=== PATIENT | male | born 1955 | race Caucasian/White ===

== ENCOUNTER 2023-10-31 13:23 | Emergency (ER) | payer OTHER, MEDICARE ==
[~2023-10-31] VITALS: Ht 182.9 cm; Wt 110.2 kg
[2023-10-31 13:43] LABS: RDW 13.9 (10.5-15.0)
[2023-10-31] MEDS ORDERED: LACTATED RINGER'S 1,000 ML IV ONE (13:45)
[2023-10-31 13:46] LABS: BASOPHILS 0.9 % (0-2); EOSINOPHILS 0.1 % (0-6); HEMATOCRIT 42.8 % (35.0-50.0); HEMOGLOBIN 14.4 g/dL (12.0-18.0); LYMPHOCYTES 24.8 % (24-44); MCH 29.6 (27-36); MCHC 33.6 g/dl (30-36); MONOCYTES 5.1 % (0-12); NEUTROPHILS 69.1 % (39-80); PLATELET COUNT 263 K/uL (140-440); RBC 4.87 M/ul (4.3-5.7)
[2023-10-31 13:54] LABS: ALBUMIN 3.9 g/dL (3.4-5.0); ALBUMIN/GLOBULIN RATIO 1.15 (1.1-2.4); ALCOHOL, MEDICAL <3 ng/dL (<3); ALKALINE PHOSPHATASE 78 U/L (46-116); ALT (SGPT) 39 U/L (14-59); ANION GAP 15.6 (7-21); AST (SGOT) 23 U/L (15-37); BILIRUBIN, TOTAL 0.6 ng/dL (0.2-1.0); BUN/CREATININE RATIO 22.66 (6.0-28.6); CARBON DIOXIDE 23 mmol/L (21-32); CHLORIDE 104 mmol/L (98-107); CREATINE KINASE 175 U/L (39-308); GLOMERULAR FILTRATION RATE,EST 50 mL/min (>60); POTASSIUM 3.6 mmol/L (3.5-5.1); PROTEIN, TOTAL 7.3 g/dL (6.4-8.2); UREA NITROGEN 34 mg/dL (7-18)
[2023-10-31 14:00] LABS: CALCIUM 9.5 mg/dL (8.5-10.1)
[2023-10-31] MEDS ORDERED: HYDROmorphone HCL 1 MG/ML SYR IV ONE (14:00)
[2023-10-31] MEDS ORDERED: ondansetron HCL 4 MG/2 ML VIAL IV ONE (14:00)
[2023-10-31 14:12] LABS: ABO A; ANTIBODY SCREEN NEGATIVE; RH NEGATIVE
[2023-10-31 15:47] LABS: BILIRUBIN, URINE NEGATIVE (negative); BLOOD/HGB, URINE SMALL (Negative); KETONE, URINE NEGATIVE (Negative); LEUK ESTERASE, URINE NEGATIVE (negative); NITRITE, URINE NEGATIVE (negative); PH, URINE 5.5 (5-7)
[2023-10-31 15:55] LABS: BACTERIA, URINE NONE SEEN /hpf (negative); CASTS, URINE NONE SEEN \\lpf; COLLECTION TYPE, URINE CLEAN CATCH; CRYSTALS, URINE NONE SEEN (0-1+); EPITHELIAL CELLS, URINE SQUAMOUS 1+ /lpf (0-1+); REFLEX CULTURE, URINE No (No); WHITE BLOOD CELLS, URINE 0-1 /HPF (0-5)
[2023-10-31 16:10] LABS: AMPHETAMINES, URINE NEGATIVE (NEGATIVE); BARBITURATES, URINE NEGATIVE (NEGATIVE); BENZODIAZEPINE, URINE NEGATIVE (NEGATIVE); BUPRENORPHINE, URINE NEGATIVE (NEGATIVE); CANNABINOID, URINE NEGATIVE (NEGATIVE); COCAINE, URINE NEGATIVE (NEGATIVE); ECSTASY, URINE NEGATIVE (NEGATIVE); FENTANYL, URINE NEGATIVE (NEGATIVE); METHADONE, URINE NEGATIVE (NEGATIVE); OPIATES, URINE POSITIVE (NEGATIVE); OXYCODONE, URINE NEGATIVE (NEGATIVE); PHENCYCLIDINE, URINE NEGATIVE (NEGATIVE)
[2023-10-31] MEDS ORDERED: LIDODERM1 EACH TOP (17:02)
[2023-10-31] MEDS ORDERED: CYCLOBENZAPRINE10 MG PO (17:02)
[2023-10-31 17:12] VITALS: BP 115/72
== END 2023-10-31 17:12 | disposition home or self-care (01) ==
LOC: ED 13:23
PROVIDERS: Emergency Medicine
DX: M54.50 Low back pain, unspecified (principal); V23.49XA Other motorcycle driver injured in collision with car, pick-up truck or van in traffic accident, initial encounter
CPT/HCPCS: 36415; 70450; 71045; 71260; 72125; 72128; 72131; 74177; 80053; 80307; 81001; 82553; 83605; 85025; 86850; 86900; 86901; 99284-25; G0480; J1170; J2405; J7121